=== PATIENT | female | born 1955 | race Caucasian/White ===

== ENCOUNTER 2018-06-15 16:07 | Emergency (ER) | payer OTHER ==
[2018-06-15 16:27] VITALS: BP 139/96
--- NOTE | 2018-06-15 17:40 | UC ---
Back Pain HPI - HPI Summary HPI Summary: 63-year-old woman 63-year-old woman comes in with a chief complaint of low back pain that has been radiating down both of her legs. Been going on for 1-2 days. She's had a history of recurrent low back pain occasionally with lumbar radiculopathy. This particular episode is worse than usual. When she woke up this morning she felt like her legs would not hold her. She was able to move around and her leg started working normally again. Initially she had pain down sciatic distribution of both legs now she just has a down on the right leg. Pains in the low back and she is answer the right buttock all the way down to the right foot. Denies any numbness or weakness at this time. She only has pain at this time. Denies any difficulty controlling urine or bowel or perineal paresthesias. Pain in the low back and the leg is worse with ambulation. She is on chronic pain medicines which is helping with the pain. - History of Current Complaint Chief Complaint: UCBackPain Stated Complaint: PAIN THROUGHOUT Time Seen by Provider: 06/15/18 16:32 Hx Last Menstrual Period: na Pain Intensity: 9 - Allergies/Home Medications Allergies/Adverse Reactions: Allergies Allergy/AdvReac Type Severity Reaction Status Date / Time buprenorphine Allergy Palpitation Verified 06/15/18 16:28 s omeprazole Allergy Unknown Verified 06/15/18 16:28 Reaction Details Sulfa (Sulfonamide Allergy Unknown Verified 06/15/18 16:28 Antibiotics) Reaction Details diclofenac [From Flector] AdvReac Mild Itching Verified 06/15/18 16:28 morphine AdvReac Nausea And Verified 06/15/18 16:28 Vomiting pregabalin [From Lyrica] AdvReac Altered Verified 06/15/18 16:28 Mental Status flector patch Allergy Mild Itching Uncoded 06/15/18 16:28 Home Medications: Home Medications Hydrochlorothiazide TAB* [Hydrodiuril TAB*] 25 mg PO DAILY 06/15/18 [History Confirmed 06/15/18] PMH/Surg Hx/FS Hx/Imm Hx Previously Healthy: Yes - CHRONIC INTERMITTENT LOW BACK PAIN Cardiovascular History: Hypertension GI/ History: Gastroesophageal Reflux - Surgical History Surgical History: Yes Surgery Procedure, Year, and Place: Left Hip Replacement with Revision;. Bilateral Carpal Tunnel;. Tonsillectomy;. Tubal Ligation - Family History Known Family History: Positive: Cardiac Disease, Hypertension - Social History Alcohol Use: None Substance Use Type: None Substance Use Comment - Amount & Last Used: percocet Smoking Status (MU): Former Smoker Type: Cigarettes When Did the Patient Quit Smoking/Using Tobacco: 1999 Review of Systems All Other Systems Reviewed And Are Negative: Yes Constitutional: Positive: Negative Skin: Positive: Negative Eyes: Positive: Negative ENT: Positive: Negative Respiratory: Positive: Negative Cardiovascular: Positive: Negative Gastrointestinal: Positive: Negative Genitourinary: Positive: Negative Motor: Positive: Other - SEE HPI Neurovascular: Positive: Other - SEE HPI Musculoskeletal: Positive: Other: - SEE HPI Neurological: Positive: Other - SEE HPI Psychological: Positive: Negative Is Patient Immunocompromised?: No Physical Exam Triage Information Reviewed: Yes Appearance: Well-Appearing, Well-Nourished, Pain Distress - MILD WITH MOVEMENT OF LOW BACK Vital Signs: Initial Vital Signs Temp 99.1 F 06/15/18 16:21 Pulse 101 06/15/18 16:21 Resp 18 06/15/18 16:21 BP 139/96 06/15/18 16:21 Pulse Ox 98 06/15/18 16:21 Vital Signs Reviewed: Yes Eye Exam: Normal Eyes: Positive: Conjunctiva Clear Neck exam: Normal Neck: Positive: Supple Respiratory: Positive: Lungs clear, Normal breath sounds, No respiratory distress Cardiovascular: Positive: RRR Musculoskeletal: Positive: Strength Intact, ROM Intact, Other: - Patient is tender to palpation in the low back and in the sciatic distribution through the right buttock. Lower legs have strength 5 out of 5 with normal sensation and normal capillary refill. Normal plantarflexion and dorsiflexion. Pain does get worse with right hip flexion. Neurological Exam: Normal Neurological: Positive: Alert, Muscle Tone Normal Psychological Exam: Normal Psychological: Positive: Age Appropriate Behavior Skin Exam: Normal Back Pain Course/Dx - Course Course Of Treatment: Order Information: CT SPINE LUMBAR W/O. Accession Number: [id number]. CPT: 35611. INDICATION: Low back pain with radiculopathy worse than the right lower extremity than. the left. COMPARISON: L-spine radiograph dated March 27, 2018 that demonstrates scoliotic. curvature and advanced degenerative changes. TECHNIQUE: Contiguous axial sections were obtained beginning lower thoracic vertebra and. continuing through the sacrum. Images were reconstructed in the sagittal and coronal. planes. FINDINGS: Again seen is levoconvex curvature of the lumbar spine measuring approximately 45 degrees. with the apex at L2/L3. Multilevel degenerative change includes loss of intervertebral disc height and marginal. osteophyte formation. There is a small degree of anterolisthesis of L4 over L5. There is a. pars interarticularis defect at the left L5/S1 level. Axial images: At L3-L4 there is broad-based disc protrusion combining with facet arthropathy and. thickening of ligamentum flavum to cause a mild degree of central canal stenosis , moderate. left and mild right neural foraminal stenosis. At L4/L5 there is broad-based disc protrusion exacerbated by scoliotic curvature that. combines with facet arthropathy and thickening of ligamentum flavum to cause moderate. central canal stenosis and moderate bilateral neural foraminal stenosis. There is coarse atherosclerotic calcification of the abdominal aorta. At the right adnexa. there is a fluid density structure measuring up to 5.8 cm in greatest axial dimension. IMPRESSION: 1. Multilevel degenerative changes of the lower thoracic and lumbar spine exacerbated by. levoconvex scoliotic curvature with the apex at the L2/L3 level. This yields multilevel. central canal and neural foraminal stenoses, most severely affecting the L4/L5 level. There is no definite acute fracture or dislocation. 2. At the right adnexa there is a fluid density cyst measuring 5.8 cm in greatest axial. dimension. Superior characterization can be made with pelvic ultrasound on a nonemergent. basis. _ . <Electronically signed by Kristopher Guadalupe MD in [facility]> 06/15/18 1800. I discussed the CT report with the patient. At this time the patient has no neurologic deficit. She is scheduled to see a physical therapist on June 19, 2018 for her back. We discussed keeping that appointment and discussing the symptoms with her physical therapist. Also we discussed if there is any neurologic deficit weakness numbness difficulty controlling urine or bowel that she needed to get reevaluated right away in the emergency department. - Differential Dx/Diagnosis Provider Diagnosis: Low back pain with right-sided sciatica Discharge - Sign-Out/Discharge Documenting (check all that apply): Patient Departure All imaging exams completed and their final reports reviewed: Yes - Discharge Plan Condition: Stable Disposition: HOME Patient Education Materials: Chronic Back Pain (DC), Lumbar Radiculopathy (ED) , Lower Back Exercises (ED) Referrals: Gera Fournier MD [Primary Care Provider] - Additional Instructions: FOLLOW UP WITH YOUR DOCTOR IF NOT COMPLETELY IMPROVED. GET RECHECKED SOONER WITH ANY WORSENING OF YOUR CONDITION OR QUESTIONS OR CONCERNS. - Billing Disposition and Condition Condition: STABLE Disposition: Home
== END 2018-06-15 18:25 | disposition home or self-care (01) ==
LOC: UCEAST 16:07
DX: M54.41 Lumbago with sciatica, right side (principal); G89.29 Other chronic pain; I10 Essential (primary) hypertension; Z79.899 Other long term (current) drug therapy; Z87.891 Personal history of nicotine dependence; Z88.5 Allergy status to narcotic agent; Z88.2 Allergy status to sulfonamides; Z88.8 Allergy status to other drugs, medicaments and biological substances; Z96.642 Presence of left artificial hip joint
CPT/HCPCS: 72131; 99211; G0463